=== PATIENT | male | born 1955 ===

== ENCOUNTER 2017-04-19 17:03 | Emergency (ER) | payer SELFPAY ==
[2017-04-19 17:27] VITALS: BP 129/87
[2017-04-19 18:09] LABS: Anion Gap 17 mmol/L; Blood Urea Nitrogen 11 mg/dL (9-20); Calcium 9.4 mg/dL (8.4-10.2); Carbon Dioxide 27 mmol/L (22-30); Chloride 104.4 mmol/L (98-107); Glucose 88 mg/dL (75-100); Potassium 4.3 mmol/L (3.6-5.0); Sodium 144 mmol/L (137-145)
[2017-04-19 18:16] LABS: Basophils % (Auto) 0.9 % (0.0-1.8); Eosinophils % (Auto) 1.6 % (0.0-4.3); Hematocrit 43.1 % (35.5-45.6); Hemoglobin 14.3 gm/dl (11.8-15.2); Mean Corpuscular HGB Conc 33 % (32-34); Mean Corpuscular Hemoglobin 29 pg (28-32); Mean Corpuscular Volume 87 fl (84-94); Platelet Count 247 K/mm3 (140-440); Red Blood Count 4.93 M/mm3 (3.65-5.03); Red Cell Distribution Width 14.3 % (13.2-15.2); White Blood Count 7.7 K/mm3 (4.5-11.0)
[2017-04-19] MEDS ORDERED: GEODON IM ONE (23:25)
[2017-04-19] MEDS ORDERED: WATER FOR INJ (PF) 0 ML ONE (23:26)
--- NOTE | 2017-04-23 13:17 | ED Elopement Review ---
ED Pt Elopement review - Results review Lab results: Laboratory Tests 04/19/17 04/19/17 04/19/17 17:34 17:34 17:34 WBC 7.7 RBC 4.93 Hgb 14.3 Hct 43.1 MCV 87 MCH 29 MCHC 33 RDW 14.3 Plt Count 247 Lymph % (Auto) 38.1 H [place] % (Auto) 8.6 H Eos % (Auto) 1.6 Baso % (Auto) 0.9 Lymph # 2.9 [place] # 0.7 Eos # 0.1 Baso # 0.1 Seg Neutrophils % 50.8 Seg Neutrophils # 3.9 Sodium 144 Potassium 4.3 Chloride 104.4 Carbon Dioxide 27 Anion Gap 17 BUN 11 Creatinine 1.0 Estimated GFR > 60 BUN/Creatinine Ratio 11.00 Glucose 88 Calcium 9.4 Plasma/Serum Alcohol < 0.01 - Call Back decision Pt Call Back Decision: No action required
== END 2017-04-19 21:30 | disposition left against medical advice (07) ==
LOC: ED 17:03
DX: Z00.8 Encounter for other general examination (principal); Z53.21 Procedure and treatment not carried out due to patient leaving prior to being seen by health care provider
CPT/HCPCS: 36415; 80048; 85025; G0480; 80320; J3486